=== PATIENT | female | born 1945 | race Two or more races ===

== ENCOUNTER 2018-05-15 05:19 | Day surgery (SDC) | payer OTHER ==
[2018-05-12 17:13] VITALS: BMI 32.1
[2018-05-15 08:25] VITALS: TEMP 98.4
[2018-05-15] MEDS ORDERED: oxyCODONE HCL 5 MG TABLET PO PRN (09:10)
[2018-05-15] MEDS ORDERED: MIDAZOLAM HCL 2 MG/2 ML SINGLE DOSE VIAL ONE (09:40)
--- NOTE | 2018-05-15 10:01 | OP ---
Operative Note - Note: Operative Date: 05/15/18 Pre-Operative Diagnosis: Left kidney stones Operation: Left ESWL Findings: 5 mm lower pole kidney stone Post-Operative Diagnosis: Same as Pre-op Surgeon: Chris Mallory (no complications) Anesthesia: Fractional Estimated Blood Loss (mls): 0
[2018-05-15 11:20] VITALS: BP 143/57; PULSE 57
--- NOTE | 2018-05-15 22:13 | OP ---
DATE OF OPERATION: 05/15/2018 PREOPERATIVE DIAGNOSIS: Left renal stone. POSTOPERATIVE DIAGNOSIS: Left renal stone. PROCEDURE: Left extracorporeal shock wave lithotripsy. ATTENDING: Chas Sears MD ANESTHESIA: Fractional. DESCRIPTION OF OPERATION: Patient was brought in the operating room, placed in supine position on the operating room table. Ultrasonography and fluoroscopy were performed. A 5-mm left renal stone is identified in the lower pole. Anesthesia and preoperative antibiotics are then administered. Shock wave lithotripsy is then performed; 2500 impulses at 20 joules of power were administered to the stone with excellent fragmentation under real-time ultrasonography and fluoroscopy. No complications are noted. The disposition of the patient is to the recovery room. CHAS SEARS M.D. [id number]
== END 2018-05-15 11:46 | disposition home or self-care (01) ==
LOC: JASU-SURG 05:19
PROVIDERS: ATTEND Urology
PROC: 0TF4XZZ Fragmentation in Left Kidney Pelvis, External Approach (ICD-10-PCS; principal; 2018-05-15 09:30)
DX: N20.0 Calculus of kidney (principal)

== ENCOUNTER 2018-05-29 06:15 | Day surgery (SDC) | payer OTHER ==
[2018-05-26 09:26] VITALS: BMI 32.1
[2018-05-29 06:53] VITALS: TEMP 98.3
[2018-05-29] MEDS ORDERED: MIDAZOLAM HCL 2 MG/2 ML SINGLE DOSE VIAL ONE (08:07)
[2018-05-29] MEDS ORDERED: DEXAMETHASONE SOD PHOSPHATE 4 MG/1 ML VIAL ONE (08:27)
--- NOTE | 2018-05-29 09:12 | OP ---
Operative Note - Note: Operative Date: 05/29/18 Pre-Operative Diagnosis: Right kidney stone Operation: Right ESWL Findings: 10 mm lower pole Right kidney stone Post-Operative Diagnosis: Same as Pre-op Surgeon: Chris Mallory Anesthesia: Fractional Estimated Blood Loss (mls): 0 (no intraoperative complications) Operative Report Dictated: Yes
[2018-05-29 10:10] VITALS: BP 128/51; PULSE 58
--- NOTE | 2018-05-29 18:31 | OP ---
DATE OF OPERATION: 05/29/2018 PREOPERATIVE DIAGNOSIS: Right renal stone. POSTOPERATIVE DIAGNOSIS: Right renal stone. PROCEDURE: Right extracorporeal shockwave lithotripsy. ATTENDING SURGEON: Chas Sears MD ANESTHESIA: Fractional. OPERATION: Patient was brought to the operating room and placed in the supine position on the operating room table. Ultrasonography and fluoroscopy were performed. A 10-mm right lower pole stone was identified. Anesthesia and preoperative antibiotics were then administered. Shockwave lithotripsy was then started. Three-thousand impulses at 17 Joules of power were administered to the stone under real-time ultrasonography and fluoroscopy. Excellent fragmentation of the stone was noted. No complications were noted. Patient tolerated the procedure very well. DISPOSITION: Patient was to the recovery room. CHAS SEARS M.D. [id number]
== END 2018-05-29 09:40 | disposition home or self-care (01) ==
LOC: JASU-SURG 06:15
PROVIDERS: ATTEND Urology
PROC: 0TF3XZZ Fragmentation in Right Kidney Pelvis, External Approach (ICD-10-PCS; principal; 2018-05-29 08:00)
DX: N20.0 Calculus of kidney (principal)

== ENCOUNTER 2018-07-02 13:16 | Emergency (ER) | payer OTHER ==
[2018-07-02 13:22] VITALS: TEMP 99.1; BMI 32.1
--- NOTE | 2018-07-02 13:27 | PDOC ---
Attending Attestation - Resident Resident Name: Malick Coombs - HPI HPI: 07/04/18 09:18 Pt presents to the ED complaining of a three day history of mild frontal headache. She has taken no medication for the pain. Although the pain is very mild, she reported to the ED because she took her blood pressure at home today and her blood pressure was 163. This prompted her to come to the Ed for evaluation. Denies chest pain, shortness of breath, photophobia, nausea or vomiting. Symptoms are consistent with, but less severe than, her previous headaches. - Physicial Exam PE: 07/04/18 09:28 Agree with resident exam. Patient is AA Ox3 and in no acute distress. CV: RRR no m/r/g Pulm: CTA b/l abdomen soft, non tender, non distended. Neck: supple. Neuro: Patient is alert and oriented, with a normal mood and affect. Speech is fluent and clear. CN 2-12 are grossly intact. Patient is ambulatory in the ED with a normal gait. - Medical Decision Making 07/04/18 09:30 Pt presents to the ED with mild, gradual onset headache that is consistent with tension headache. REsolved after tylenol. No concern for subarachnoid. recently evaluated for headache with negative CT head, so no concern about tumor. Will discharge home with referral to PMD.
[2018-07-02] MEDS ORDERED: ACETAMINOPHEN 500 MG TABLET (FP) PO ONE (13:39)
[2018-07-02] MEDS ORDERED: METOCLOPRAMIDE HCL 10 MG TABLET (FP) PO ONE ×2 (13:39→13:46)
[2018-07-02] MEDS ORDERED: ACETAMINOPHEN 325 MG TABLET (FP) ONE (13:46)
--- NOTE | 2018-07-02 13:52 | PDOC ---
History of Present Illness - General Chief Complaint: Blood Pressure Problem Stated Complaint: BLOOD PRESSURE PROBLEM Time Seen by Provider: 07/02/18 13:26 History Source: Patient - History of Present Illness Initial Comments: 07/02/18 13:42 Patient is a 72F with history of HTN and hypothyroidism here today complaining of a headache that started 3 days ago. She states the headache is around her entire forehead radiating to the back of her neck. Onset was insidious with gradual worsening until today. Patient hasn't taken any medications for her headache. Patient endorses associated nausea, denies vomiting. Denies any focal weakness or changes to her speech. Denies neck stiffness, fevers, chills, sick contacts. Denies chest pain, abdominal pain and shortness of breath. Patient attributes her headache to her blood pressure, which was measured at 163 at home. Denies light sensitivity, sound sensitivity. Patient had a visit for a headache [address] was done at that time and was normal. Past History - Past Medical History Allergies/Adverse Reactions: Allergies Allergy/AdvReac Type Severity Reaction Status Date / Time No Known Allergies Allergy Verified 07/02/18 13:22 Home Medications: Ambulatory Orders Aspirin [Aspirin EC] 81 mg PO DAILY 12/19/17 Oxybutynin Chloride 5 mg PO DAILY 12/19/17 Amlodipine/Atorvastatin [Amlodipine-Atorvast 5-40 mg] 1 tab PO DAILY 05/15/18 Alendronate Sodium/Vitamin D3 [Fosamax Plus D 70 mg-5,600 Iu vIT d] 1 each PO Q7D 05/26/18 Cevimeline HCl 30 mg PO BID 05/26/18 Cyclosporine [Restasis] 1 each OU BID 05/26/18 Etanercept [Enbrel] 50 mg SQ WEEKLY 05/26/18 Leflunomide [Arava] 20 mg PO DAILY 05/26/18 Levothyroxine [Synthroid -] 50 mcg PO DAILY 05/26/18 Anemia: No Asthma: No Cancer: No Cardiac Disorders: No CVA: No COPD: No CHF: No Dementia: No Diabetes: No GI Disorders: No Disorders: No HTN: Yes Hypercholesterolemia: No Liver Disease: No Seizures: No Thyroid Disease: Yes - Surgical History Abdominal Surgery: No Appendectomy: No Cardiac Surgery: No Cholecystectomy: No Lung Surgery: No Neurologic Surgery: No Orthopedic Surgery: Yes (l knee replacement, r knee arthroscopy) - Suicide/Smoking/Psychosocial Hx Smoking History: Never smoked Have you smoked in the past 12 months: No Hx Alcohol Use: No Drug/Substance Use Hx: No Substance Use Type: None Review of Systems - Review of Systems Comments:: 07/02/18 13:54 GENERAL/CONSTITUTIONAL: No fever or chills. No weakness. HEAD, EYES, EARS, NOSE AND THROAT: No change in vision. No sore throat. CARDIOVASCULAR: No chest pain or shortness of breath RESPIRATORY: No cough, wheezing, or hemoptysis. GASTROINTESTINAL: No nausea, vomiting, diarrhea or constipation. GENITOURINARY: No dysuria, frequency, or change in urination. MUSCULOSKELETAL: No joint or muscle swelling or pain. No neck or back pain. SKIN: No rash NEUROLOGIC: + headache. No vertigo, loss of consciousness, or change in strength /sensation. ENDOCRINE: No increased thirst. No abnormal weight change HEMATOLOGIC/LYMPHATIC: No anemia, easy bleeding, or history of blood clots. ALLERGIC/IMMUNOLOGIC: No hives or skin allergy. *Physical Exam - Vital Signs Last Vital Signs Temp Pulse Resp BP Pulse Ox 99.1 F 62 18 150/69 99 07/02/18 13:19 07/02/18 13:19 07/02/18 13:19 07/02/18 13:19 07/02/18 13:19 - Physical Exam Comments: 07/02/18 13:57 GENERAL: Awake, alert, and fully oriented, in no acute distress HEAD: No signs of trauma, normocephalic, atraumatic EYES: PERRLA, EOMI, sclera anicteric, conjunctiva clear ENT: Auricles normal inspection, hearing grossly normal, nares patent, oropharynx clear without exudates. Moist mucosa NECK: Normal ROM, supple, no lymphadenopathy, JVD, or masses, no midline tenderness LUNGS: No distress, speaks full sentences, clear to auscultation bilaterally HEART: Regular rate and rhythm, normal S1 and S2, no murmurs, rubs or gallops, peripheral pulses normal and equal bilaterally. ABDOMEN: Soft, nontender, normoactive bowel sounds. No guarding, no rebound. No masses EXTREMITIES: Normal inspection, Normal range of motion, no edema. No clubbing or cyanosis. NEUROLOGICAL: Cranial nerves II through XII grossly intact. Normal speech, no focal sensorimotor deficits SKIN: Warm, Dry, normal turgor, no rashes or lesions noted. Medical Decision Making - Medical Decision Making 07/02/18 13:57 Patient is 72F with no significant medical history here today complaining of headache and nausea. Vital signs stable, BP 150 systolic. PE normal. No red flags in history. Given reglan and tylenol PO for likely tension headache. Do not suspect mass, subdural hematoma, parenchymal brain bleed or other serious etiology. Patient improved, wants to go home. Discharged home with instructions to f/u with PCP. Given return precautions. *DC/Admit/Observation/Transfer Diagnosis at time of Disposition: Headache - Discharge Dispostion Disposition: HOME Condition at time of disposition: Good Decision to Admit order: No - Referrals Referrals: Linden Callaway MD [Primary Care Provider] - - Patient Instructions Printed Discharge Instructions: DI for Headache, How to Monitor Your Blood Pressure at Home Additional Instructions: Por favor, regrese si tiene algn sntoma nuevo, que empeora o que est relacionado con los sntomas. Por favor stevie un seguimiento con kovacs mdico de atencin primaria esta semana. Print Language: INDONESIAN - Post Discharge Activity
[2018-07-02 14:27] VITALS: BP 133/62; PULSE 68
== END 2018-07-02 14:29 | disposition home or self-care (01) ==
LOC: JER 13:16
DX: R51 Headache (principal); I10 Essential (primary) hypertension; E03.9 Hypothyroidism, unspecified; Z79.82 Long term (current) use of aspirin
CPT/HCPCS: 99282-25

== ENCOUNTER 2018-07-12 08:53 | Day surgery (SDC) | payer OTHER ==
[2018-07-11 09:48] VITALS: BMI 31.1
[~2018-07-12 08:53] MED LIST: ACETAMINOPHEN 325 MG TABLET (FP) PO PRN; KETOROLAC TROMETHAMINE 0.5% EYE DROP 1 DROP DROPS OD SCH
[2018-07-12] MEDS ORDERED: OFLOXACIN 0.3% OPHTHALMIC SOLUTION 5 ML BOTTLE ONE ×2 (09:21→09:25)
[2018-07-12] MEDS ORDERED: TROPICAMIDE 1% OPHTH SOLN 15 ML BOTTLE ONE ×2 (09:21→09:25)
[2018-07-12] MEDS ORDERED: CYCLOPENTOLATE HCL 1% OPHTH SOLN 2 ML BOTTLE ONE ×2 (09:21→09:25)
[2018-07-12] MEDS ORDERED: PHENYLEPHRINE 2.5% OPHTH SOLN 15 ML BOTTLE ONE ×2 (09:21→09:25)
[2018-07-12] MEDS ORDERED: DICLOFENAC SODIUM 0.1% OPHTHALMIC 2.5ML BOTTLE ONE (09:25)
[2018-07-12] MEDS: OFLOXACIN 0.3% OPHTHALMIC SOLUTION 5 ML BOTTLE OD SCH ×3 (09:30→09:40)
[2018-07-12] MEDS: PHENYLEPHRINE 2.5% OPHTH SOLN 15 ML BOTTLE OD SCH ×3 (09:30→09:40)
[2018-07-12] MEDS: CYCLOPENTOLATE HCL 1% OPHTH SOLN 2 ML BOTTLE OD SCH ×3 (09:30→09:40)
[2018-07-12] MEDS: TROPICAMIDE 1% OPHTH SOLN 15 ML BOTTLE OD SCH ×3 (09:30→09:40)
[2018-07-12] MEDS ORDERED: MIDAZOLAM HCL 2 MG/2 ML SINGLE DOSE VIAL ONE (10:20)
[2018-07-12] MEDS ORDERED: TETRACAINE 0.5% OPHTH SOLN 2 ML BOTTLE OD ONE (10:31)
[2018-07-12] MEDS ORDERED: POVIDONE-IODINE 5% OPHTHALMIC PREP 30 ML SOLUTION OD ONE (10:33)
[2018-07-12] MEDS ORDERED: CHONDROITIN SU A/HYALUR SOD 1 KIT IO ONE (10:44)
[2018-07-12] MEDS ORDERED: BSS (NA/CA/MG/K) BALANCED SALT SOLUTION OPHTH SOLN 15 ML BOTTLE OD ONE (10:44)
[2018-07-12] MEDS ORDERED: LIDOCAINE HCL 1% PRESERVATIVE FREE - 30ML VIAL IO ONE (10:44)
[2018-07-12] MEDS ORDERED: TRYPAN BLUE 0.5 ML DISP.SYRIN IO ONE (10:44)
[2018-07-12] MEDS ORDERED: EPINEPHrine/PF 1 MG/1 ML (1:1,000) AMPULE SQ ONE (10:52)
[2018-07-12] MEDS ORDERED: TRYPAN BLUE 0.5 ML DISP.SYRIN ONE (11:45)
[2018-07-12 15:00] VITALS: BP 146/57; PULSE 64
--- NOTE | 2018-07-13 00:33 | OP ---
DATE OF OPERATION: DATE OF DICTATION: 07/12/2018 PREOPERATIVE DIAGNOSIS: Cataract, right eye. POSTOPERATIVE DIAGNOSIS: Cataract, right eye. PROCEDURE: Phacoemulsification of right cataract with capsule staining with trypan blue and posterior chamber intraocular lens implantation. LENS USED: [id number], 23.0 diopter power, serial number [id number]. ANESTHESIA: Topical with MAC COMPLICATIONS: None. DESCRIPTION OF PROCEDURE: The patient was brought to the operating room and correctly identified along with the operative site as well as the correct intraocular lens roa. She was then prepped and draped in the usual sterile fashion including 5% Betadine solution in the conjunctival sac and an eyelid drape. An eyelid speculum was then placed into the right eye. The eye was inspected, and a dense, central nuclear sclerosis cataract was noted; however, there appeared to be some elevation within the central anterior capsule with perhaps subcapsular fluid being present. The red reflex was prominent; however, the cornea also had a mild opacity making the visualization of the anterior capsule slightly diminished. Paracentesis port was created, and 0.5 mL of 1% lidocaine preservative free Lidocaine was then injected intracamerally. Using an air bubble, the capsule was then stained with Trypan blue. Viscoelastic was then injected to inflate the anterior chamber, and a temporal clear corneal wound was created. A continuous circular capsulorrhexis was successfully performed. The nucleus was then hydro-dissected with BSS and removed with phacoemulsification via the [id number] approach. The remaining cortical material was irrigated and aspirated from the eye. Viscoelastic was injected to inflate the capsular bag and the lens was then injected into the capsular bag. Viscoelastic was irrigated and aspirated from the eye, and all wounds were tested after filling the anterior chamber with BSS by external pressure with weck spear sponges. The temporal clear corneal wound was noted to have some mild leakage. Stromal hydration was performed, but this did not solve the leakage. A single 10-0 nylon suture was then placed in the temporal clear corneal wound, and again the wound tested. At this point, it was found to be watertight. No further sutures were placed. The intraocular lens was noted to be well centered and covered by the anterior capsular border. Topical Vancomycin was given and the eye patched and shielded. The patient was then discharged from the operating room in stable condition. JARRET RUBY M.D. [id number] LEANNE
== END 2018-07-12 12:25 | disposition home or self-care (01) ==
LOC: JASU-SURG 08:53
PROVIDERS: ATTEND Ophthalmology
PROC: 08RJ3JZ Replacement of Right Lens with Synthetic Substitute, Percutaneous Approach (ICD-10-PCS; principal; 2018-07-12 10:00)
DX: H26.9 Unspecified cataract (principal); H17.89 Other corneal scars and opacities

== ENCOUNTER 2018-07-26 08:47 | Day surgery (SDC) | payer OTHER ==
[2018-07-25 09:44] VITALS: BMI 31.1
[~2018-07-26 08:47] MED LIST changes: -KETOROLAC TROMETHAMINE 0.5% EYE DROP 1 DROP DROPS OD SCH
[2018-07-26] MEDS ORDERED: OFLOXACIN 0.3% OPHTHALMIC SOLUTION 5 ML BOTTLE ONE (09:12)
[2018-07-26] MEDS ORDERED: PHENYLEPHRINE 2.5% OPHTH SOLN 15 ML BOTTLE ONE (09:12)
[2018-07-26] MEDS ORDERED: CYCLOPENTOLATE HCL 1% OPHTH SOLN 2 ML BOTTLE ONE (09:12)
[2018-07-26] MEDS ORDERED: TROPICAMIDE 1% OPHTH SOLN 15 ML BOTTLE ONE (09:13)
[2018-07-26] MEDS ORDERED: KETOROLAC TROMETHAMINE 0.5% EYE DROP 1 DROP DROPS ONE (09:13)
[2018-07-26 09:15] VITALS: TEMP 98.9
[2018-07-26] MEDS: OFLOXACIN 0.3% OPHTHALMIC SOLUTION 5 ML BOTTLE OP SCH ×3 (09:20→09:44)
[2018-07-26] MEDS: TROPICAMIDE 1% OPHTH SOLN 15 ML BOTTLE OP SCH ×3 (09:20→09:44)
[2018-07-26] MEDS: CYCLOPENTOLATE HCL 1% OPHTH SOLN 2 ML BOTTLE OP SCH ×3 (09:20→09:44)
[2018-07-26] MEDS: PHENYLEPHRINE 2.5% OPHTH SOLN 15 ML BOTTLE OP SCH ×3 (09:20→09:44)
[2018-07-26] MEDS: KETOROLAC TROMETHAMINE 0.5% EYE DROP 1 DROP DROPS OP SCH ×3 (09:20→09:44)
[2018-07-26] MEDS ORDERED: MIDAZOLAM HCL 2 MG/2 ML SINGLE DOSE VIAL ONE (09:52)
[2018-07-26] MEDS ORDERED: TETRACAINE 0.5% OPHTH SOLN 2 ML BOTTLE OS ONE (10:15)
[2018-07-26] MEDS ORDERED: POVIDONE-IODINE 5% OPHTHALMIC PREP 30 ML SOLUTION OS ONE (10:17)
[2018-07-26] MEDS ORDERED: LIDOCAINE HCL 1% PRESERVATIVE FREE - 30ML VIAL IO ONE (10:25)
[2018-07-26] MEDS ORDERED: BSS (NA/CA/MG/K) BALANCED SALT SOLUTION OPHTH SOLN 15 ML BOTTLE OS ONE (10:25)
[2018-07-26] MEDS ORDERED: CHONDROITIN SU A/HYALUR SOD 1 KIT IO ONE (10:25)
[2018-07-26] MEDS ORDERED: EPINEPHrine/PF 1 MG/1 ML (1:1,000) AMPULE SQ ONE (10:32)
[2018-07-26] MEDS ORDERED: ONDANSETRON 4 MG/2 ML VIAL IVPUSH PRN (10:51)
[2018-07-26] MEDS ORDERED: LACTATED RINGERS SOLUTION 1,000 ML IV SCH (11:00)
[2018-07-26 11:07] VITALS: PULSE 72
--- NOTE | 2018-07-26 12:20 | SPEC ---
DATE OF OPERATION: 07/26/2018 PREOPERATIVE DIAGNOSIS: Cataract, left eye. POSTOPERATIVE DIAGNOSIS: Cataract, left eye. PROCEDURE: Phacoemulsification of left cataract with posterior chamber intraocular lens implantation. Lens used [id number], 23.0 diopter power, serial No. [id number]. SURGEON: Jarret Ruby M.D. ANESTHESIA: Topical MAC. COMPLICATIONS: None. DESCRIPTION OF PROCEDURE: The patient was brought to the operating room and correctly identified along with the operative site and the correct intraocular lens roa. The patient was then prepped and draped in the usual sterile fashion including 5% Betadine solution in the conjunctival sac and an eyelid drape. An eyelid speculum was then placed in the eye. A paracentesis port was created and approximately 0.5 mL of preservative free Lidocaine was then injected into the eye. Viscoelastic was then injected to inflate the anterior chamber. A temporal clear corneal wound was created. A continuous circular capsulorrhexis was performed. The nucleus was then hydrodissected with BSS and removed with phacoemulsification. The remaining cortical material was irrigated and aspirated. Viscoelastic was injected to inflate the capsular bag and the intraocular lens was then implanted into the capsular bag. The remaining Viscoelastic was irrigated and aspirated from the eye. The IOL was noted to be well centered and completely covered by the anterior capsulorrhexis. Topical vancomycin was placed and the eye patched and shielded. All wounds were tested and found to be watertight. No suture was placed. The eye was then shielded. The patient was then discharged from the operating room in stable condition. JARRET RUBY M.D. [id number]
[2018-07-26 13:01] VITALS: BP 122/55
== END 2018-07-26 12:00 | disposition home or self-care (01) ==
LOC: JASU-SURG 08:47
PROVIDERS: ATTEND Ophthalmology
PROC: 08RK3JZ Replacement of Left Lens with Synthetic Substitute, Percutaneous Approach (ICD-10-PCS; principal; 2018-07-26 10:00)
DX: H26.9 Unspecified cataract (principal)

== ENCOUNTER 2022-11-24 13:05 | Inpatient (IN) | payer OTHER ==
[2022-11-24] MEDS ORDERED: ACETAMINOPHEN 1000 MG/100 ML BAG IVPB ONE (14:24)
[2022-11-24] MEDS ORDERED: SODIUM CHLORIDE 0.9% 500 ML INFUS.BAG IV ONE (14:38)
[2022-11-24] MEDS ORDERED: ACETAMINOPHEN INJECTION 100 ML IVPB ONE (14:39)
[2022-11-24 15:47] LABS: EPI CELLS 32 /uL (0-25.1); HYALINE CASTS 1 /uL (0-3.1); URINE APPEARANCE CLOUDY; URINE BACTERIA 31 /uL (0-1359); URINE BILIRUBIN NEGATIVE (NEGATIVE); URINE COLOR YELLOW; URINE GLUCOSE (UA) NEGATIVE (NEGATIVE); URINE KETONE NEGATIVE (NEGATIVE); URINE LEUK ESTERASE NEGATIVE (NEGATIVE); URINE NITRITE NEGATIVE (NEGATIVE); URINE PROTEIN 1+ (NEGATIVE); URINE RBC 13 /uL (0-23.9); URINE WBC 6 /uL (0-25.8)
[2022-11-24 15:50] LABS: BASO % 0.5 % (0-2.0); EOS % 0.8 % (0-4.5); HEMATOCRIT 36.2 % (32.4-45.2); HEMOGLOBIN 11.4 GM/dL (10.7-15.3); LYMPH % 13.1 % (8-40); MCH 30.7 pg (25.7-33.7); MCHC 31.6 g/dl (32.0-36.0); MEAN CELL VOLUME 97.1 fl (80-96); MEAN PLT VOLUME 10.4 fl (7.5-11.1); MONO % 10.8 % (3.8-10.2); NEUT % 74.8 % (42.8-82.8); PLATELET COUNT 179 10^3/uL (134-434); RBC 3.73 M/mm3 (3.60-5.2); RDW 13.6 % (11.6-15.6)
[2022-11-24 15:57] LABS: INR 1.13 (0.83-1.09)
[2022-11-24 16:00] LABS: ACTIVATED PTT 28.7 SECONDS (25.2-36.5)
[2022-11-24 16:08] LABS: ALBUMIN 3.5 g/dl (3.4-5.0); BLOOD UREA NITROGEN 20.7 mg/dL (7-18)
[2022-11-24 16:12] LABS: CREATININE 1.4 mg/dL (0.55-1.3)
[2022-11-24 16:13] LABS: BILIRUBIN,TOTAL 0.8 mg/dL (0.2-1); TOT PROT 7.9 g/dl (6.4-8.2)
[2022-11-24] MEDS ORDERED: PIPERACILLIN/TAZOB 3.375 GM 3.375 GM in DEXTROSE 5%-WATER - 50 ML IVPB ONE (18:53)
[2022-11-24] MEDS ORDERED: PIPERACILLIN/TAZOB 3.375 GM 3.375 GM/50 ML BAG IVPB ONE (19:30)
[2022-11-24 19:45] LABS: CALCIUM 8.3 mg/dL (8.5-10.1)
[2022-11-24 19:47] LABS: BLOOD UREA NITROGEN 19.4 mg/dL (7-18)
[2022-11-24 19:50] LABS: CREATININE 1.3 mg/dL (0.55-1.3)
[2022-11-24] MEDS ORDERED: LACTATED RINGERS SOLUTION 1,000 ML/1,000 ML INFUS.BAG IV SCH (23:15)
[2022-11-25 00:17] VITALS: BMI 33.8
[2022-11-25] MEDS ORDERED: PIPERACILLIN/TAZOB 2.25 GM 2.25 GM in DEXTROSE 5%-WATER - 50 ML IVPB SCH (03:40)
[2022-11-25] MEDS: PIPERACILLIN/TAZOB 2.25 GM 2.25 GM in DEXTROSE 5%-WATER - 50 ML IVPB SCH ×4 (03:47→21:58)
[2022-11-25] MEDS ORDERED: PATIENT'S OWN MEDICATION (NON-FORMULARY) (Etanercept [Enbrel] 50 MG/ML Syringe) SQ SCH (05:45)
[2022-11-25] MEDS: ACETAMINOPHEN 1000 MG/100 ML BAG IVPB PRN ×2 (06:51→11:53)
[2022-11-25 07:47] LABS: BASO % 0.5 % (0-2.0); EOS % 0.4 % (0-4.5); HEMATOCRIT 32.6 % (32.4-45.2); HEMOGLOBIN 10.6 GM/dL (10.7-15.3); LYMPH % 15.7 % (8-40); MCH 31.4 pg (25.7-33.7); MCHC 32.5 g/dl (32.0-36.0); MEAN CELL VOLUME 96.7 fl (80-96); MEAN PLT VOLUME 10.3 fl (7.5-11.1); MONO % 11.1 % (3.8-10.2); NEUT % 72.3 % (42.8-82.8); PLATELET COUNT 153 10^3/uL (134-434); RBC 3.37 M/mm3 (3.60-5.2); RDW 13.1 % (11.6-15.6); WHITE BLOOD COUNT 7.9 K/mm3 (4.0-10.0)
[2022-11-25 08:21] LABS: BLOOD UREA NITROGEN 17.2 mg/dL (7-18); MAGNESIUM 1.6 mg/dL (1.8-2.4)
[2022-11-25 08:22] LABS: CALCIUM 8.4 mg/dL (8.5-10.1)
[2022-11-25 08:26] LABS: BILIRUBIN,TOTAL 0.8 mg/dL (0.2-1); TOT PROT 6.3 g/dl (6.4-8.2)
[2022-11-25 08:27] LABS: CREATININE 1.4 mg/dL (0.55-1.3)
[2022-11-25 08:29] LABS: PHOSPHOROUS 2.8 mg/dL (2.5-4.9)
[2022-11-25] MEDS: LISINOPRIL 20 MG TABLET PO SCH (11:18)
[2022-11-25] MEDS: PANTOPRAZOLE 40 MG TABLET PO SCH (11:18)
[2022-11-25] MEDS: amLODIPine BESYLATE 10 MG TABLET (FP) PO SCH (11:18)
[2022-11-25] MEDS: FOLIC ACID 1 MG TABLET (FP) PO SCH (11:18)
[2022-11-25] MEDS ORDERED: MAGNESIUM SULF 50% (8.12 MEQ/2 ML-1 GM VIAL) IVPB ONE (11:30)
[2022-11-25] MEDS ORDERED: DEXTROSE 5%-NORMAL SALINE 1,000 ML IV SCH (13:00)
[2022-11-25] MEDS ORDERED: ATORVASTATIN CA 20 MG TABLET (FP) PO SCH (22:00)
[2022-11-26 09:42] LABS: BASO % 0.4 % (0-2.0); EOS % 1.4 % (0-4.5); LYMPH % 19.1 % (8-40); MCH 31.4 pg (25.7-33.7); MCHC 32.2 g/dl (32.0-36.0); MEAN CELL VOLUME 97.5 fl (80-96); MEAN PLT VOLUME 10.2 fl (7.5-11.1); NEUT % 69.1 % (42.8-82.8); PLATELET COUNT 154 10^3/uL (134-434); RBC 3.18 M/mm3 (3.60-5.2); RDW 13.2 % (11.6-15.6); WHITE BLOOD COUNT 7.1 K/mm3 (4.0-10.0)
[2022-11-26] MEDS: LISINOPRIL 20 MG TABLET PO SCH (09:52)
[2022-11-26] MEDS: PANTOPRAZOLE 40 MG TABLET PO SCH (09:52)
[2022-11-26] MEDS: amLODIPine BESYLATE 10 MG TABLET (FP) PO SCH (09:53)
[2022-11-26] MEDS: FOLIC ACID 1 MG TABLET (FP) PO SCH (09:53)
[2022-11-26] MEDS ORDERED: LEVOTHYROXINE NA 75 MCG TABLET (FP) PO SCH (10:00)
[2022-11-26 10:30] LABS: CALCIUM 8.1 mg/dL (8.5-10.1)
[2022-11-26 10:31] LABS: BLOOD UREA NITROGEN 15.3 mg/dL (7-18)
[2022-11-26 10:34] LABS: CREATININE 1.3 mg/dL (0.55-1.3)
[2022-11-26] MEDS ORDERED: PROPOFOL 20 ML ONE (10:40)
[2022-11-26] MEDS ORDERED: ROCURONIUM BROMIDE 50 MG/5 ML SYRINGE ONE (10:40)
[2022-11-26] MEDS ORDERED: MIDAZOLAM HCL 2 MG/2 ML SINGLE DOSE VIAL ONE (10:41)
[2022-11-26] MEDS ORDERED: BUPIVACAINE HCL/PF 0.5% (5MG/ML) 10 ML VIAL ONE (11:02)
[2022-11-26] MEDS ORDERED: oxyCODONE HCL 5 MG TABLET PO PRN (11:10)
[2022-11-26] MEDS ORDERED: ONDANSETRON 4 MG/2 ML VIAL IVPUSH PRN ×2 (11:10→14:25)
[2022-11-26] MEDS ORDERED: LACTATED RINGERS SOLUTION 1,000 ML IV SCH (11:15)
[2022-11-26] MEDS ORDERED: ceFAZolin SODIUM 1 GM VIAL IVPB ONE (11:40)
[2022-11-26] MEDS ORDERED: BUPIVACAINE HCL/PF 0.5% (5 MG/ML) 30 ML VIAL IJ ONE ×2 (11:50)
[2022-11-26] MEDS ORDERED: NEOSTIGMINE METHYLSULFATE 0.5 MG/1 ML - 10 ML MDV ONE (12:57)
[2022-11-26] MEDS ORDERED: ACETAMINOPHEN 325 MG TABLET (FP) PO PRN (14:25)
[2022-11-26] MEDS ORDERED: ONDANSETRON 4 MG/2 ML VIAL ONE (15:31)
[2022-11-26] MEDS ORDERED: ONDANSETRON 4 MG/2 ML VIAL IVPUSH ONE (15:32)
[2022-11-26] MEDS: LACTATED RINGERS SOLUTION 1,000 ML IV SCH ×2 (16:12→21:46)
[2022-11-26] MEDS: PIPERACILLIN/TAZOB 3.375 GM 3.375 GM in DEXTROSE 5%-WATER - 50 ML IVPB SCH ×2 (16:24→21:45)
[2022-11-26] MEDS: PATIENT'S OWN MEDICATION (NON-FORMULARY) (Leflunomide [Arava] 20 MG Tablet) PO SCH ×2 (16:34→16:35)
[2022-11-26] MEDS: PATIENT'S OWN MEDICATION (NON-FORMULARY) (Vibegron [Gemtesa] 75 MG Tablet) PO SCH ×2 (16:34→16:36)
[2022-11-26] MEDS ORDERED: PIPERACILLIN/TAZOB 2.25 GM 2.25 GM in DEXTROSE 5%-WATER - 50 ML IVPB SCH (19:00)
[2022-11-26] MEDS: ATORVASTATIN CA 20 MG TABLET (FP) PO SCH (21:44)
[2022-11-26] MEDS: oxyCODONE HCL 5 MG TABLET PO PRN (21:44)
[2022-11-27] MEDS: PIPERACILLIN/TAZOB 3.375 GM 3.375 GM in DEXTROSE 5%-WATER - 50 ML IVPB SCH ×4 (02:19→22:28)
[2022-11-27] MEDS: oxyCODONE HCL 5 MG TABLET PO PRN (04:22)
[2022-11-27] MEDS: LEVOTHYROXINE NA 75 MCG TABLET (FP) PO SCH (06:28)
[2022-11-27 09:16] LABS: BASO % 0.1 % (0-2.0); HEMATOCRIT 28.9 % (32.4-45.2); HEMOGLOBIN 9.3 GM/dL (10.7-15.3); LYMPH % 11.7 % (8-40); MCH 31.4 pg (25.7-33.7); MCHC 32.1 g/dl (32.0-36.0); MEAN CELL VOLUME 97.8 fl (80-96); MEAN PLT VOLUME 9.8 fl (7.5-11.1); MONO % 2.7 % (3.8-10.2); NEUT % 85.5 % (42.8-82.8); PLATELET COUNT 150 10^3/uL (134-434); RBC 2.96 M/mm3 (3.60-5.2); WHITE BLOOD COUNT 6.6 K/mm3 (4.0-10.0)
[2022-11-27 09:33] LABS: CALCIUM 7.7 mg/dL (8.5-10.1)
[2022-11-27 09:35] LABS: BLOOD UREA NITROGEN 19.2 mg/dL (7-18); MAGNESIUM 1.9 mg/dL (1.8-2.4)
[2022-11-27 09:37] LABS: CREATININE 1.5 mg/dL (0.55-1.3)
[2022-11-27] MEDS: PANTOPRAZOLE 40 MG TABLET PO SCH (11:00)
[2022-11-27] MEDS: LISINOPRIL 20 MG TABLET PO SCH (11:00)
[2022-11-27] MEDS: FOLIC ACID 1 MG TABLET (FP) PO SCH (11:00)
[2022-11-27] MEDS: amLODIPine BESYLATE 10 MG TABLET (FP) PO SCH (11:00)
[2022-11-27] MEDS: LACTATED RINGERS SOLUTION 1,000 ML IV SCH ×3 (11:01→22:28)
[2022-11-27] MEDS: LEFLUNOMIDE 10 MG TABLET PO SCH (13:32)
[2022-11-27] MEDS: ATORVASTATIN CA 20 MG TABLET (FP) PO SCH (22:28)
[2022-11-28] MEDS: PIPERACILLIN/TAZOB 3.375 GM 3.375 GM in DEXTROSE 5%-WATER - 50 ML IVPB SCH ×4 (02:01→22:33)
[2022-11-28] MEDS: LEVOTHYROXINE NA 75 MCG TABLET (FP) PO SCH (06:33)
[2022-11-28] MEDS: amLODIPine BESYLATE 10 MG TABLET (FP) PO SCH (09:06)
[2022-11-28] MEDS: FOLIC ACID 1 MG TABLET (FP) PO SCH (09:06)
[2022-11-28] MEDS: LEFLUNOMIDE 10 MG TABLET PO SCH (09:06)
[2022-11-28] MEDS: PANTOPRAZOLE 40 MG TABLET PO SCH (09:06)
[2022-11-28] MEDS: LISINOPRIL 20 MG TABLET PO SCH (09:06)
[2022-11-28 09:51] LABS: BASO % 0.3 % (0-2.0); EOS % 0.1 % (0-4.5); HEMATOCRIT 28.7 % (32.4-45.2); HEMOGLOBIN 9.2 GM/dL (10.7-15.3); LYMPH % 18.8 % (8-40); MCH 31.4 pg (25.7-33.7); MCHC 32.1 g/dl (32.0-36.0); MEAN PLT VOLUME 9.7 fl (7.5-11.1); MONO % 5.8 % (3.8-10.2); PLATELET COUNT 188 10^3/uL (134-434); RBC 2.93 M/mm3 (3.60-5.2); WHITE BLOOD COUNT 7.4 K/mm3 (4.0-10.0)
[2022-11-28 10:30] LABS: ALBUMIN 2.4 g/dl (3.4-5.0); CALCIUM 7.9 mg/dL (8.5-10.1)
[2022-11-28 10:32] LABS: BLOOD UREA NITROGEN 24.7 mg/dL (7-18); CREATININE 1.6 mg/dL (0.55-1.3); MAGNESIUM 1.9 mg/dL (1.8-2.4)
[2022-11-28 10:34] LABS: BILIRUBIN,TOTAL 0.3 mg/dL (0.2-1)
[2022-11-28 10:35] LABS: TOT PROT 5.7 g/dl (6.4-8.2)
[2022-11-28] MEDS ORDERED: LACTATED RINGERS SOLUTION 1,000 ML IV SCH (10:51)
[2022-11-28] MEDS ORDERED: NAPH,MB-DB/K PH,MBDB POWDER PACKET PO ONE (11:30)
[2022-11-28] MEDS: TOLTERODINE TARTRATE LA 2 MG CAP.SR.24H PO SCH (12:14)
[2022-11-28] MEDS: PATIENT'S OWN MEDICATION (NON-FORMULARY) (Vibegron [Gemtesa] 75 MG) PO SCH (16:34)
[2022-11-28] MEDS: LACTATED RINGERS SOLUTION 1,000 ML/1,000 ML INFUS.BAG IV SCH (16:44)
[2022-11-28] MEDS: ATORVASTATIN CA 20 MG TABLET (FP) PO SCH (22:33)
[2022-11-29] MEDS: PIPERACILLIN/TAZOB 3.375 GM 3.375 GM in DEXTROSE 5%-WATER - 50 ML IVPB SCH ×3 (03:37→14:09)
[2022-11-29] MEDS: LACTATED RINGERS SOLUTION 1,000 ML/1,000 ML INFUS.BAG IV SCH ×2 (04:09→14:13)
[2022-11-29] MEDS: LEVOTHYROXINE NA 75 MCG TABLET (FP) PO SCH (06:28)
[2022-11-29] MEDS: PANTOPRAZOLE 40 MG TABLET PO SCH (10:13)
[2022-11-29] MEDS: TOLTERODINE TARTRATE LA 2 MG CAP.SR.24H PO SCH (10:13)
[2022-11-29] MEDS: FOLIC ACID 1 MG TABLET (FP) PO SCH (10:13)
[2022-11-29] MEDS: amLODIPine BESYLATE 10 MG TABLET (FP) PO SCH (10:13)
[2022-11-29] MEDS: LISINOPRIL 20 MG TABLET PO SCH (10:13)
[2022-11-29] MEDS: LEFLUNOMIDE 10 MG TABLET PO SCH (10:13)
[2022-11-29 10:24] LABS: BASO % 0.5 % (0-2.0); EOS % 2.4 % (0-4.5); HEMATOCRIT 33.2 % (32.4-45.2); HEMOGLOBIN 10.6 GM/dL (10.7-15.3); LYMPH % 33.3 % (8-40); MCH 31.2 pg (25.7-33.7); MCHC 31.9 g/dl (32.0-36.0); MEAN PLT VOLUME 9.2 fl (7.5-11.1); NEUT % 55.8 % (42.8-82.8); PLATELET COUNT 231 10^3/uL (134-434); RBC 3.39 M/mm3 (3.60-5.2); RDW 13.5 % (11.6-15.6); WHITE BLOOD COUNT 6.5 K/mm3 (4.0-10.0)
[2022-11-29 10:51] LABS: CREATININE 1.5 mg/dL (0.55-1.3)
[2022-11-29 10:52] LABS: BILIRUBIN,TOTAL 0.4 mg/dL (0.2-1); TOT PROT 6.5 g/dl (6.4-8.2)
[2022-11-29 10:53] LABS: ALBUMIN 2.8 g/dl (3.4-5.0); CALCIUM 8.7 mg/dL (8.5-10.1); MAGNESIUM 1.6 mg/dL (1.8-2.4)
[2022-11-29 10:54] LABS: BLOOD UREA NITROGEN 17.6 mg/dL (7-18)
[2022-11-29 10:57] LABS: PHOSPHOROUS 2.6 mg/dL (2.5-4.9)
[2022-11-29 11:32] VITALS: TEMP 98.3
[2022-11-29 15:57] VITALS: BP 138/62; PULSE 91; RESP 17
[2022-11-29] MEDS ORDERED: ASPIRIN COATED 81 MG TABLET.EC PO SCH (16:15)
== END 2022-11-29 16:45 | disposition home or self-care (01) | DRG 418 ==
LOC: JER 13:05 → JERBED 18:54 → J7W 21:24
PROVIDERS: ADMIT Internal Medicine; ATTEND Internal Medicine
PROC: 0FT44ZZ Resection of Gallbladder, Percutaneous Endoscopic Approach (ICD-10-PCS; principal; 2022-11-26 10:45)
DX: K81.0 Acute cholecystitis (principal); K82.1 Hydrops of gallbladder; K86.2 Cyst of pancreas; E03.9 Hypothyroidism, unspecified; M06.9 Rheumatoid arthritis, unspecified; Z96.652 Presence of left artificial knee joint; K76.0 Fatty (change of) liver, not elsewhere classified; I12.9 Hypertensive chronic kidney disease with stage 1 through stage 4 chronic kidney disease, or unspecified chronic kidney disease; N18.9 Chronic kidney disease, unspecified; N20.0 Calculus of kidney; K40.90 Unilateral inguinal hernia, without obstruction or gangrene, not specified as recurrent; K82.A1 Gangrene of gallbladder in cholecystitis
CPT/HCPCS: 0241U-QW; 36415; 74176-TC; 74182-TC; 76700-TC; 80048; 80053; 81003; 83690; 83735; 84100; 84484; 85025; 85610; 85730; 86850; 86900; 86901; 87086; 88304-TC; 93005; 93010; 94760; 94761; 97116-GP; 97162-GP; 99285-25; A9579

== ENCOUNTER 2022-12-21 04:21 | Day surgery (SDC) | payer OTHER ==
[2022-12-21] MEDS ORDERED: DEXAMETHASONE SOD PHOSPHATE 10 MG/1 ML VIAL ONE (07:28)
[2022-12-21] MEDS ORDERED: LIDOCAINE HCL/PF 1% SDV 5ML VIAL ONE (07:28)
[2022-12-21] MEDS ORDERED: DEXAMETHASONE SOD PHOSPHATE 4 MG/1 ML VIAL ONE (07:28)
[2022-12-21 09:49] VITALS: RESP 18; BMI 30.2
[2022-12-21] MEDS ORDERED: LIDOCAINE HCL 1% PRESERVATIVE FREE - 30ML VIAL IJ ONE (11:12)
[2022-12-21] MEDS ORDERED: DEXAMETHASONE SOD PHOSPHATE 10 MG/1 ML VIAL IVPUSH ONE (11:12)
[2022-12-21] MEDS ORDERED: IOHEXOL 180 MG/1 ML ML IJ ONE (11:13)
[2022-12-21 14:29] VITALS: BP 145/58; PULSE 70; TEMP 97.8
== END 2022-12-21 12:00 | disposition home or self-care (01) ==
LOC: JASU-SURG 04:21
PROVIDERS: ATTEND Pain Medicine Pain Medicine
PROC: 3E0R3BZ Introduction of Anesthetic Agent into Spinal Canal, Percutaneous Approach (ICD-10-PCS; 2022-12-21)
PROC: 3E0R33Z Introduction of Anti-inflammatory into Spinal Canal, Percutaneous Approach (ICD-10-PCS; principal; 2022-12-21 11:00)
DX: M48.061 Spinal stenosis, lumbar region without neurogenic claudication (principal); M54.16 Radiculopathy, lumbar region
CPT/HCPCS: 76000-TC-FY; J1100

== ENCOUNTER 2023-03-10 04:22 | Day surgery (SDC) | payer OTHER ==
[2023-03-09 10:46] VITALS: BMI 32.1
[2023-03-10 12:23] VITALS: TEMP 97.3
[2023-03-10 12:24] VITALS: PULSE 70
[2023-03-10 12:27] VITALS: BP 138/46; RESP 12
== END 2023-03-10 11:40 | disposition home or self-care (01) ==
LOC: JASU-ENDO 04:22
PROVIDERS: ATTEND Internal Medicine Gastroenterology
PROC: 0DBH8ZX Excision of Cecum, Via Natural or Artificial Opening Endoscopic, Diagnostic (ICD-10-PCS; 2023-03-10)
PROC: 0DB78ZX Excision of Stomach, Pylorus, Via Natural or Artificial Opening Endoscopic, Diagnostic (ICD-10-PCS; 2023-03-10)
PROC: 0DBM8ZX Excision of Descending Colon, Via Natural or Artificial Opening Endoscopic, Diagnostic (ICD-10-PCS; principal; 2023-03-10 10:30)
DX: D12.4 Benign neoplasm of descending colon (principal); D12.0 Benign neoplasm of cecum; K57.30 Diverticulosis of large intestine without perforation or abscess without bleeding; K29.50 Unspecified chronic gastritis without bleeding; K44.9 Diaphragmatic hernia without obstruction or gangrene; I10 Essential (primary) hypertension
CPT/HCPCS: 88305-TC; 88342-TC

== ENCOUNTER 2023-03-25 04:13 | Day surgery (SDC) | payer OTHER ==
[2023-03-18 14:28] VITALS: BMI 30.2
[2023-03-25] MEDS ORDERED: BUPIVACAINE HCL/PF 0.5% (5MG/ML) 10 ML VIAL ONE (07:19)
[2023-03-25] MEDS ORDERED: LIDOCAINE HCL/PF 2% SDV 5ML VIAL ONE (07:19)
[2023-03-25] MEDS ORDERED: BUPIVACAINE HCL/PF 0.75% 10 ML VIAL ONE (07:19)
[2023-03-25] MEDS ORDERED: LIDOCAINE HCL/PF 1% SDV 5ML VIAL ONE (07:19)
[2023-03-25] MEDS ORDERED: BUPIVACAINE HCL/PF 0.75% 10 ML VIAL NR ONE ×3 (08:40→10:44)
[2023-03-25] MEDS ORDERED: LIDOCAINE 1% P/F 10 MG/ML VIAL INF ONE ×2 (08:40→10:44)
[2023-03-25 08:42] VITALS: RESP 18
[2023-03-25] MEDS ORDERED: ACETAMINOPHEN 500 MG TABLET (FP) PO PRN (09:58)
[2023-03-25 11:47] VITALS: BP 107/65; PULSE 70; TEMP 98.4
== END 2023-03-25 11:25 | disposition home or self-care (01) ==
LOC: JASU-SURG 04:13
PROVIDERS: ATTEND Pain Medicine Pain Medicine
PROC: 3E0T33Z Introduction of Anti-inflammatory into Peripheral Nerves and Plexi, Percutaneous Approach (ICD-10-PCS; 2023-03-25)
PROC: 3E0T3BZ Introduction of Anesthetic Agent into Peripheral Nerves and Plexi, Percutaneous Approach (ICD-10-PCS; principal; 2023-03-25 10:15)
DX: M47.816 Spondylosis without myelopathy or radiculopathy, lumbar region (principal)
CPT/HCPCS: 76000-TC-FY

== ENCOUNTER 2023-04-15 04:22 | Day surgery (SDC) | payer OTHER ==
[2023-04-14 10:27] VITALS: BMI 31.1
[~2023-04-15 04:22] MED LIST changes: -ACETAMINOPHEN 325 MG TABLET (FP) PO PRN; +BUPIVACAINE HCL/PF 0.75% 10 ML VIAL NR ONE; +LIDOCAINE HCL 1% PRESERVATIVE FREE - 30ML VIAL IJ ONE
[2023-04-15] MEDS ORDERED: LIDOCAINE HCL/PF 1% SDV 5ML VIAL ONE (07:35)
[2023-04-15] MEDS ORDERED: BUPIVACAINE HCL/PF 0.75% 10 ML VIAL ONE (07:35)
[2023-04-15] MEDS ORDERED: ACETAMINOPHEN 500 MG TABLET (FP) PO PRN (09:19)
[2023-04-15 14:54] VITALS: RESP 20
[2023-04-15] MEDS ORDERED: BUPIVACAINE HCL/PF 0.75% 10 ML VIAL NR ONE (15:20)
[2023-04-15] MEDS ORDERED: LIDOCAINE HCL 1% PRESERVATIVE FREE - 30ML VIAL IJ ONE (15:20)
[2023-04-15 19:28] VITALS: BP 120/67; PULSE 82; TEMP 97.2
== END 2023-04-15 16:25 | disposition home or self-care (01) ==
LOC: JASU-SURG 04:22
PROVIDERS: ATTEND Pain Medicine Pain Medicine
PROC: 3E0T33Z Introduction of Anti-inflammatory into Peripheral Nerves and Plexi, Percutaneous Approach (ICD-10-PCS; 2023-04-15)
PROC: 3E0T3BZ Introduction of Anesthetic Agent into Peripheral Nerves and Plexi, Percutaneous Approach (ICD-10-PCS; principal; 2023-04-15 16:30)
DX: M47.816 Spondylosis without myelopathy or radiculopathy, lumbar region (principal)
CPT/HCPCS: 76000-TC-FY

== ENCOUNTER 2023-06-24 06:15 | Day surgery (SDC) | payer OTHER ==
[2023-06-24] MEDS ORDERED: LIDOCAINE HCL/PF 1% SDV 5ML VIAL ONE (08:12)
[2023-06-24] MEDS ORDERED: BUPIVACAINE HCL/PF 0.75% 10 ML VIAL ONE (08:14)
[2023-06-24] MEDS ORDERED: DEXAMETHASONE SOD PHOSPHATE 10 MG/1 ML VIAL ONE (08:14)
[2023-06-24] MEDS ORDERED: LIDOCAINE HCL/PF 2% SDV 5ML VIAL ONE (08:15)
[2023-06-24 08:28] VITALS: BMI 31.1
[2023-06-24] MEDS ORDERED: ACETAMINOPHEN 500 MG TABLET (FP) PO PRN (09:21)
[2023-06-24] MEDS ORDERED: LIDOCAINE HCL 1% PRESERVATIVE FREE - 30ML VIAL INF ONE ×2 (11:23→12:10)
[2023-06-24] MEDS ORDERED: LIDOCAINE HCL/PF 2% SDV 5ML VIAL INF ONE ×2 (11:24→12:10)
[2023-06-24] MEDS ORDERED: BUPIVACAINE HCL/PF 0.75% 10 ML VIAL NR ONE ×2 (11:25→12:10)
[2023-06-24] MEDS ORDERED: DEXAMETHASONE SOD PHOSPHATE 10 MG/1 ML VIAL IVPUSH ONE ×2 (11:25→12:10)
[2023-06-24 13:24] VITALS: BP 169/64; PULSE 81; RESP 18; TEMP 98
== END 2023-06-24 13:22 | disposition home or self-care (01) ==
LOC: JASU-SURG 06:15
PROVIDERS: ATTEND Pain Medicine Pain Medicine
PROC: 015B3ZZ Destruction of Lumbar Nerve, Percutaneous Approach (ICD-10-PCS; principal; 2023-06-24 11:45)
DX: M47.816 Spondylosis without myelopathy or radiculopathy, lumbar region (principal)
CPT/HCPCS: 76000-TC-FY; J1100

== ENCOUNTER 2023-07-29 04:11 | Day surgery (SDC) | payer OTHER ==
[2023-07-27 11:54] VITALS: BMI 31.1
[2023-07-29] MEDS ORDERED: BUPIVACAINE HCL/PF 0.75% 10 ML VIAL ONE (07:15)
[2023-07-29] MEDS ORDERED: LIDOCAINE HCL/PF 2% SDV 5ML VIAL ONE (07:15)
[2023-07-29] MEDS ORDERED: DEXAMETHASONE SOD PHOSPHATE 10 MG/1 ML VIAL ONE (07:15)
[2023-07-29 08:42] VITALS: RESP 18
[2023-07-29] MEDS ORDERED: ACETAMINOPHEN 500 MG TABLET (FP) PO PRN (09:29)
[2023-07-29] MEDS ORDERED: LIDOCAINE 1% P/F 10 MG/ML VIAL INF ONE (10:38)
[2023-07-29] MEDS ORDERED: LIDOCAINE HCL 2% (50ML VIAL) INF ONE (10:38)
[2023-07-29] MEDS ORDERED: BUPIVACAINE HCL/PF 0.75% 10 ML VIAL PNB ONE (10:38)
[2023-07-29] MEDS ORDERED: DEXAMETHASONE SOD PHOSPHATE 10 MG/1 ML VIAL IVPUSH ONE (10:38)
[2023-07-29 12:41] VITALS: BP 150/60; PULSE 66; TEMP 97.7
== END 2023-07-29 12:10 | disposition home or self-care (01) ==
LOC: JASU-SURG 04:11
PROVIDERS: ATTEND Pain Medicine Pain Medicine
PROC: 015B3ZZ Destruction of Lumbar Nerve, Percutaneous Approach (ICD-10-PCS; principal; 2023-07-29 10:15)
DX: M47.816 Spondylosis without myelopathy or radiculopathy, lumbar region (principal)
CPT/HCPCS: 76000-TC-FY; J1100

== ENCOUNTER 2023-08-26 04:42 | Day surgery (SDC) | payer OTHER ==
[2023-08-25 09:07] VITALS: BMI 31.2
[~2023-08-26 04:42] MED LIST changes: +BUPIVACAINE HCL/PF 0.5% (5MG/ML) 10 ML VIAL IJ ONE; -BUPIVACAINE HCL/PF 0.75% 10 ML VIAL NR ONE; -LIDOCAINE HCL 1% PRESERVATIVE FREE - 30ML VIAL IJ ONE; +LIDOCAINE HCL 1%, 10 MG/ML (20ML VIAL) NR ONE
[2023-08-26] MEDS ORDERED: BUPIVACAINE HCL/PF 0.5% (5MG/ML) 10 ML VIAL ONE (07:31)
[2023-08-26] MEDS ORDERED: LIDOCAINE HCL/PF 1% SDV 5ML VIAL ONE (07:31)
[2023-08-26 09:20] VITALS: RESP 18
[2023-08-26] MEDS ORDERED: BUPIVACAINE HCL/PF 0.5% (5MG/ML) 10 ML VIAL IJ ONE (10:40)
[2023-08-26 13:16] VITALS: BP 157/62; PULSE 72; TEMP 97.9
[2023-08-26] MEDS ORDERED: ACETAMINOPHEN 500 MG TABLET (FP) PO PRN (14:05)
== END 2023-08-26 12:15 | disposition home or self-care (01) ==
LOC: JASU-SURG 04:42
PROVIDERS: ATTEND Pain Medicine Pain Medicine
PROC: 3E0T3BZ Introduction of Anesthetic Agent into Peripheral Nerves and Plexi, Percutaneous Approach (ICD-10-PCS; principal; 2023-08-26 11:00)
DX: M47.812 Spondylosis without myelopathy or radiculopathy, cervical region (principal)
CPT/HCPCS: 76000-TC-FY

== ENCOUNTER 2023-11-18 04:06 | Day surgery (SDC) | payer OTHER ==
[2023-11-16 12:10] VITALS: BMI 31.1
[~2023-11-18 04:06] MED LIST changes: +ACETAMINOPHEN 500 MG TABLET (FP) PO PRN; -BUPIVACAINE HCL/PF 0.5% (5MG/ML) 10 ML VIAL IJ ONE; +LIDOCAINE 1% P/F 10 MG/ML VIAL INF ONE; -LIDOCAINE HCL 1%, 10 MG/ML (20ML VIAL) NR ONE
[2023-11-18] MEDS ORDERED: LIDOCAINE HCL/PF 1% SDV 5ML VIAL ONE (07:15)
[2023-11-18] MEDS ORDERED: LIDOCAINE 1% P/F 10 MG/ML VIAL INF ONE (10:00)
[2023-11-18 10:29] VITALS: RESP 20
[2023-11-18] MEDS ORDERED: ACETAMINOPHEN 500 MG TABLET (FP) PO PRN (10:58)
[2023-11-18 11:28] VITALS: BP 149/86; PULSE 77; TEMP 98
== END 2023-11-18 11:31 | disposition home or self-care (01) ==
LOC: JASU-SURG 04:06
PROVIDERS: ATTEND Pain Medicine Pain Medicine
PROC: 01HY3MZ Insertion of Neurostimulator Lead into Peripheral Nerve, Percutaneous Approach (ICD-10-PCS; principal; 2023-11-18 10:15)
DX: G89.4 Chronic pain syndrome (principal)
CPT/HCPCS: 64555; C1778; 76000-TC-FY

== ENCOUNTER 2024-07-24 10:36 | Inpatient (IN) | payer OTHER ==
[2024-07-24] MEDS ORDERED: ONDANSETRON 4 MG/2 ML VIAL ONE (11:32)
[2024-07-24] MEDS ORDERED: ACETAMINOPHEN INJECTION 100 ML ONE (11:32)
[2024-07-24] MEDS: ACETAMINOPHEN 1000 MG/100 ML BAG IVPB ONE (11:51)
[2024-07-24] MEDS: SODIUM CHLORIDE 1,000 ML IV STA (11:51)
[2024-07-24] MEDS: ONDANSETRON 4 MG/2 ML VIAL IVPUSH ONE (11:52)
[2024-07-24 12:05] LABS: BASO % 0.5 % (0-2.0); EOS % 0.9 % (0-4.5); HEMATOCRIT 37.3 % (32.4-45.2); LYMPH % 14.3 % (8-40); MCH 31.1 pg (25.7-33.7); MCHC 32.2 g/dl (32.0-36.0); MEAN CELL VOLUME 96.5 fl (80-96); MEAN PLT VOLUME 9.7 fl (7.5-11.1); MONO % 7.7 % (3.8-10.2); NEUT % 76.6 % (42.8-82.8); PLATELET COUNT 165 10^3/uL (134-434); RBC 3.86 M/mm3 (3.60-5.2); RDW 13.4 % (11.6-15.6); WHITE BLOOD COUNT 5.5 K/mm3 (4.0-10.0)
[2024-07-24 12:18] LABS: POTASSIUM 4.5 mmol/L (3.5-5.1)
[2024-07-24 12:20] LABS: ALBUMIN 3.8 g/dl (3.4-5.0); BLOOD UREA NITROGEN 31.9 mg/dL (7-18); CALCIUM 9.3 mg/dL (8.5-10.1)
[2024-07-24 12:24] LABS: CREATININE 1.4 mg/dL (0.55-1.3)
[2024-07-24 12:25] LABS: BILIRUBIN,TOTAL 0.5 mg/dL (0.2-1); TOT PROT 7.3 g/dl (6.4-8.2)
[2024-07-24] MEDS ORDERED: PIPERACILLIN/TAZOB 3.375 GM 3.375 GM/50 ML BAG IVPB ONE (16:33)
[2024-07-24] MEDS: PIPERACILLIN/TAZOB 3.375 GM 3.375 GM in DEXTROSE 5%-WATER - 50 ML IVPB ONE (16:36)
[2024-07-24] MEDS: SODIUM CHLORIDE 1,000 ML IV SCH (16:36)
[2024-07-25] MEDS ORDERED: ACETAMINOPHEN INJECTION 100 ML ONE ×2 (01:55→22:31)
[2024-07-25] MEDS: ACETAMINOPHEN 1000 MG/100 ML BAG IVPB PRN (02:02)
[2024-07-25] MEDS ORDERED: PIPERACILLIN/TAZOB 2.25 GM 2.25 GM/50 ML BAG IVPB ONE ×4 (02:03→20:45)
[2024-07-25] MEDS: PIPERACILLIN/TAZOB 2.25 GM 2.25 GM in DEXTROSE 5%-WATER - 50 ML IVPB SCH (03:05)
[2024-07-25] MEDS: LACTATED RINGERS SOLUTION 1,000 ML/1,000 ML INFUS.BAG IV SCH (09:05)
[2024-07-25] MEDS ORDERED: PATIENT'S OWN MEDICATION (NON-FORMULARY) (Etanercept [Enbrel] 50 MG/ML Syringe) SQ SCH (12:00)
[2024-07-25] MEDS ORDERED: ATORVASTATIN CA 20 MG TABLET (FP) ONE (22:31)
[2024-07-25] MEDS: ATORVASTATIN CA 20 MG TABLET (FP) PO SCH (22:37)
[2024-07-26] MEDS: LEVOTHYROXINE NA 75 MCG TABLET (FP) PO SCH (06:45)
[2024-07-26] MEDS: LEFLUNOMIDE 10 MG TABLET PO SCH (10:05)
[2024-07-26] MEDS: amLODIPine BESYLATE 10 MG TABLET (FP) PO SCH (10:05)
[2024-07-26] MEDS: LISINOPRIL 20 MG TABLET PO SCH (10:05)
[2024-07-26] MEDS: ENOXAPARIN NA (PORCINE) 40 MG/0.4 ML DISP.SYRIN SQ SCH (10:05)
[2024-07-26 10:35] LABS: INR 0.98 (0.83-1.09); PROTHROMBIN TIME (PATIENT) 11.3 SEC (9.7-13.0)
[2024-07-26 10:44] LABS: BASO % 0.7 % (0-2.0); EOS % 6.7 % (0-4.5); HEMATOCRIT 34.4 % (32.4-45.2); HEMOGLOBIN 11.1 GM/dL (10.7-15.3); LYMPH % 32.7 % (8-40); MCH 31.2 pg (25.7-33.7); MCHC 32.3 g/dl (32.0-36.0); MEAN CELL VOLUME 96.7 fl (80-96); MEAN PLT VOLUME 9.6 fl (7.5-11.1); MONO % 9.7 % (3.8-10.2); NEUT % 50.2 % (42.8-82.8); PLATELET COUNT 142 10^3/uL (134-434); RBC 3.56 M/mm3 (3.60-5.2); RDW 13.2 % (11.6-15.6); WHITE BLOOD COUNT 3.6 K/mm3 (4.0-10.0)
[2024-07-26 11:30] LABS: POTASSIUM 3.7 mmol/L (3.5-5.1)
[2024-07-26 11:38] LABS: CALCIUM 8.6 mg/dL (8.5-10.1)
[2024-07-26 11:39] LABS: ALBUMIN 3.2 g/dl (3.4-5.0); BLOOD UREA NITROGEN 16.8 mg/dL (7-18)
[2024-07-26 11:42] LABS: CREATININE 1.2 mg/dL (0.55-1.3)
[2024-07-26 11:43] LABS: BILIRUBIN,TOTAL 0.4 mg/dL (0.2-1); TOT PROT 6.3 g/dl (6.4-8.2)
[2024-07-26] MEDS: PIPERACILLIN/TAZOB 2.25 GM 2.25 GM in DEXTROSE 5%-WATER - 50 ML IVPB SCH (19:52)
[2024-07-26] MEDS: ACETAMINOPHEN 1000 MG/100 ML BAG IVPB ONE (21:33)
[2024-07-26 23:12] LABS: MAGNESIUM 1.8 mg/dL (1.8-2.4)
[2024-07-26 23:20] LABS: N-TERMINAL BNP 225.9 pg/ml (5-450)
[2024-07-27] MEDS: SIMETHICONE 80 MG TAB.CHEW (FP) PO SCH (14:59)
[2024-07-27] MEDS: BANATROL PLUS POWDER PACKET PO SCH (22:52)
[2024-07-27 23:59] VITALS: BMI 28.9
[2024-07-28] MEDS: LEVOTHYROXINE NA 100 MCG TABLET (FP) PO SCH (06:16)
[2024-07-28 09:24] LABS: BASO % 0.6 % (0-2.0); HEMATOCRIT 31.7 % (32.4-45.2); HEMOGLOBIN 10.4 GM/dL (10.7-15.3); LYMPH % 36.3 % (8-40); MCH 31.8 pg (25.7-33.7); MCHC 32.8 g/dl (32.0-36.0); MEAN CELL VOLUME 96.8 fl (80-96); MEAN PLT VOLUME 9.8 fl (7.5-11.1); NEUT % 44.1 % (42.8-82.8); PLATELET COUNT 137 10^3/uL (134-434); RBC 3.28 M/mm3 (3.60-5.2); WHITE BLOOD COUNT 3.3 K/mm3 (4.0-10.0)
[2024-07-28 09:39] LABS: POTASSIUM 4.1 mmol/L (3.5-5.1)
[2024-07-28 09:44] LABS: BLOOD UREA NITROGEN 17.4 mg/dL (7-18)
[2024-07-28 09:47] LABS: CREATININE 1.1 mg/dL (0.55-1.3)
[2024-07-28 09:49] LABS: BILIRUBIN,TOTAL 0.4 mg/dL (0.2-1); TOT PROT 5.9 g/dl (6.4-8.2)
[2024-07-29 18:48] VITALS: RESP 18
[2024-07-29 23:14] VITALS: PULSE 66
[2024-07-30 14:38] VITALS: BP 142/53; TEMP 99.1
== END 2024-07-30 16:47 | disposition home or self-care (01) | DRG 390 ==
LOC: JER 10:36 → JERBED 14:14 → J6S 07-25 23:22 → J6W 07-28 16:18
PROVIDERS: ADMIT Internal Medicine; ATTEND Internal Medicine
DX: K56.609 Unspecified intestinal obstruction, unspecified as to partial versus complete obstruction (principal); K83.8 Other specified diseases of biliary tract; I10 Essential (primary) hypertension; E78.5 Hyperlipidemia, unspecified; E03.9 Hypothyroidism, unspecified; M06.9 Rheumatoid arthritis, unspecified; K57.90 Diverticulosis of intestine, part unspecified, without perforation or abscess without bleeding; K44.9 Diaphragmatic hernia without obstruction or gangrene; I73.9 Peripheral vascular disease, unspecified; I12.9 Hypertensive chronic kidney disease with stage 1 through stage 4 chronic kidney disease, or unspecified chronic kidney disease; N18.9 Chronic kidney disease, unspecified; B35.1 Tinea unguium; B35.3 Tinea pedis; M79.674 Pain in right toe(s); M79.675 Pain in left toe(s); Z96.652 Presence of left artificial knee joint
CPT/HCPCS: 36415; 74019-TC-FY; 74176-TC; 74177-TC; 74181-TC; 76705-TC; 80053; 82962; 82977; 83036; 83735; 83880; 84443; 84484; 85025; 85610; 93005; 93010; 99285-25; J0131

== ENCOUNTER 2025-02-04 09:45 | Inpatient (IN) | payer OTHER ==
[2025-02-04 11:31] LABS: ABSOLUTE IMMATURE GRANULOCYTES 0.01 x10^3/uL (0.0-0.031); BASOPHILS # 0.03 x10^3/uL (0.01-0.08); EOSINOPHILS # 0.18 x10^3/uL (0.04-0.36); HEMATOCRIT 31.7 % (34.1-44.9); HEMOGLOBIN 9.7 g/dL (11.2-15.7); MCHC 30.6 g/dl (32.2-35.5); MEAN CELL VOLUME 98.8 fl (79.4-94.8); MEAN PLT VOLUME 10.8 fl (9.4-12.3); MONOCYTE # 0.38 x10^3/uL (0.24-0.86); MONOCYTE % 8.4 % (4.7-12.5); PLATELET COUNT 201 x10^3/uL (182-369); RDW 13.4 % (12.4-16.6)
[2025-02-04 11:46] LABS: ACTIVATED PTT 32.8 SECONDS (25.2-36.5)
[2025-02-04 11:59] LABS: POTASSIUM 4.6 mmol/L (3.5-5.1)
[2025-02-04 12:02] LABS: ALBUMIN 3.3 g/dl (3.4-5.0); BLOOD UREA NITROGEN 35.4 mg/dL (7-18); CALCIUM 9.2 mg/dL (8.5-10.1)
[2025-02-04] MEDS ORDERED: ACETAMINOPHEN INJECTION 100 ML ONE (12:02)
[2025-02-04 12:05] LABS: CREATININE 1.4 mg/dL (0.55-1.3)
[2025-02-04 12:06] LABS: BILIRUBIN,TOTAL 0.4 mg/dL (0.2-1)
[2025-02-04 12:07] LABS: TOT PROT 6.4 g/dl (6.4-8.2)
[2025-02-04] MEDS: ACETAMINOPHEN 1000 MG/100 ML BAG IVPB ONE (12:23)
[2025-02-04 12:50] LABS: URINE APPEARANCE CLEAR; URINE BILIRUBIN NEGATIVE (NEGATIVE); URINE COLOR YELLOW; URINE GLUCOSE (UA) NEGATIVE (NEGATIVE); URINE KETONE NEGATIVE (NEGATIVE); URINE LEUK ESTERASE NEGATIVE (NEGATIVE); URINE NITRITE NEGATIVE (NEGATIVE); URINE PROTEIN NEGATIVE (NEGATIVE); URINE UROBILINOGEN 0.2 mg/dL (0.2-1.0)
[2025-02-04] MEDS: SODIUM CHLORIDE 0.9% 500 ML INFUS.BAG IV ONE (13:15)
[2025-02-04 13:32] LABS: HCV DIAGNOSTIC IN-HOUSE W/RFLX NON-REACTIVE (NONREACTIVE); HIV INTERPRETATION NEGATIVE (NEGATIVE)
[2025-02-04] MEDS ORDERED: FLUORESCEIN NA 1 EA STRIP ONE (14:09)
[2025-02-04] MEDS ORDERED: TETRACAINE 0.5% OPHTH SOLN 2 ML BOTTLE ONE (14:09)
[2025-02-04] MEDS ORDERED: MORPHINE SULFATE 2 MG/ML SYRINGE ONE (15:39)
[2025-02-04] MEDS: morphine SULFATE 4 MG/ML VIAL IVPUSH ONE (15:54)
[2025-02-04] MEDS: morphine CARPU-JECT 4 MG/1 ML DISP.SYRIN IVPUSH ONE (15:54)
[2025-02-04 18:25] VITALS: BMI 27.1
[2025-02-04] MEDS ORDERED: ONDANSETRON 4 MG/2 ML VIAL IVPUSH PRN (21:13)
[2025-02-04] MEDS: ATORVASTATIN CA 20 MG TABLET (FP) PO SCH (21:48)
[2025-02-04] MEDS: DEXTROSE 5%-0.45% SALINE 1,000 ML IV SCH (21:48)
[2025-02-05] MEDS: SIMETHICONE 80 MG TAB.CHEW (FP) PO PRN (00:21)
[2025-02-05] MEDS: ACETAMINOPHEN 1000 MG/100 ML BAG IVPB PRN (05:04)
[2025-02-05] MEDS: LEVOTHYROXINE NA 88 MCG TABLET (FP) PO SCH (06:21)
[2025-02-05 08:33] LABS: ABSOLUTE IMMATURE GRANULOCYTES 0.01 x10^3/uL (0.0-0.031); BASOPHILS # 0.03 x10^3/uL (0.01-0.08); EOSINOPHIL % 6.4 % (0.7-5.8); HEMATOCRIT 31.6 % (34.1-44.9); HEMOGLOBIN 9.5 g/dL (11.2-15.7); MCHC 30.1 g/dl (32.2-35.5); MEAN CELL VOLUME 98.1 fl (79.4-94.8); MEAN PLT VOLUME 10.7 fl (9.4-12.3); MONOCYTE # 0.32 x10^3/uL (0.24-0.86); MONOCYTE % 10.3 % (4.7-12.5); PLATELET COUNT 194 x10^3/uL (182-369); RDW 13.4 % (12.4-16.6)
[2025-02-05 09:01] LABS: POTASSIUM 4.1 mmol/L (3.5-5.1)
[2025-02-05 09:16] LABS: ALBUMIN 2.9 g/dl (3.4-5.0); BLOOD UREA NITROGEN 21.2 mg/dL (7-18); CALCIUM 8.4 mg/dL (8.5-10.1)
[2025-02-05 09:21] LABS: BILIRUBIN,TOTAL 0.4 mg/dL (0.2-1)
[2025-02-05 09:22] LABS: TOT PROT 5.6 g/dl (6.4-8.2)
[2025-02-05] MEDS: OXYBUTYNIN CHLORIDE 5 MG TABLET PO SCH (09:42)
[2025-02-05] MEDS: FOLIC ACID 1 MG TABLET (FP) PO SCH (09:42)
[2025-02-05] MEDS: PANTOPRAZOLE 40 MG TABLET PO SCH (09:42)
[2025-02-05] MEDS: amLODIPine BESYLATE 10 MG TABLET (FP) PO SCH (09:43)
[2025-02-05] MEDS ORDERED: MIDAZOLAM HCL 2 MG/2 ML SINGLE DOSE VIAL ONE (12:06)
[2025-02-05] MEDS: INDOMETHACIN 50 MG RECTAL SUPPOSITORY PR ONE (13:33)
[2025-02-06 09:02] LABS: ABSOLUTE IMMATURE GRANULOCYTES 0.01 x10^3/uL (0.0-0.031); BASOPHILS # 0.02 x10^3/uL (0.01-0.08); EOSINOPHIL % 6.2 % (0.7-5.8); EOSINOPHILS # 0.23 x10^3/uL (0.04-0.36); HEMATOCRIT 31.5 % (34.1-44.9); HEMOGLOBIN 9.7 g/dL (11.2-15.7); MCHC 30.8 g/dl (32.2-35.5); MEAN CELL VOLUME 99.1 fl (79.4-94.8); MEAN PLT VOLUME 11.2 fl (9.4-12.3); MONOCYTE # 0.41 x10^3/uL (0.24-0.86); MONOCYTE % 11.1 % (4.7-12.5); PLATELET COUNT 185 x10^3/uL (182-369); RDW 13.2 % (12.4-16.6)
[2025-02-06 09:24] LABS: POTASSIUM 4.3 mmol/L (3.5-5.1)
[2025-02-06 09:30] LABS: CALCIUM 8.4 mg/dL (8.5-10.1)
[2025-02-06 09:31] LABS: ALBUMIN 2.8 g/dl (3.4-5.0); BLOOD UREA NITROGEN 18.4 mg/dL (7-18)
[2025-02-06 09:34] LABS: BILIRUBIN,TOTAL 0.4 mg/dL (0.2-1); CREATININE 1.1 mg/dL (0.55-1.3)
[2025-02-06 09:35] LABS: TOT PROT 5.5 g/dl (6.4-8.2)
[2025-02-06] MEDS: POLYETHYLENE GLYCOL (HEALTHYLAX) 3350 17 GM PACKET PO SCH (10:08)
[2025-02-06] MEDS: ENOXAPARIN NA (PORCINE) 40 MG/0.4 ML DISP.SYRIN SQ SCH (10:09)
[2025-02-06 10:16] VITALS: RESP 20
[2025-02-06 15:11] VITALS: BP 145/54; PULSE 65; TEMP 98
== END 2025-02-06 17:08 | disposition home or self-care (01) | DRG 384 ==
LOC: JER 09:45 → JERBED 16:18 → J8W 17:46
PROVIDERS: ADMIT Internal Medicine; ATTEND Internal Medicine
PROC: BF43ZZZ Ultrasonography of Gallbladder and Bile Ducts (ICD-10-PCS; 2025-02-05)
PROC: 0DJ08ZZ Inspection of Upper Intestinal Tract, Via Natural or Artificial Opening Endoscopic (ICD-10-PCS; principal; 2025-02-05 12:15)
DX: K25.9 Gastric ulcer, unspecified as acute or chronic, without hemorrhage or perforation (principal); R10.9 Unspecified abdominal pain; K86.89 Other specified diseases of pancreas; I10 Essential (primary) hypertension
CPT/HCPCS: 36415; 74177-TC; 74181-TC; 76700-TC; 80053; 81003; 83605; 83690; 84443; 85025; 85610; 85730; 86803; 86850; 86900; 86901; 87086; 87389; 99285-25; J0131; Q9967

== ENCOUNTER 2025-02-19 17:44 | Emergency (ER) | payer OTHER ==
[2025-02-19 17:54] VITALS: BMI 26.6
[2025-02-19] MEDS ORDERED: ACETAMINOPHEN INJECTION 100 ML ONE (18:46)
[2025-02-19] MEDS: ACETAMINOPHEN 1000 MG/100 ML BAG IVPB ONE (19:07)
[2025-02-19 19:20] LABS: ABSOLUTE IMMATURE GRANULOCYTES 0.02 x10^3/uL (0.0-0.031); BASOPHILS # 0.03 x10^3/uL (0.01-0.08); EOSINOPHIL % 0.4 % (0.7-5.8); EOSINOPHILS # 0.04 x10^3/uL (0.04-0.36); HEMATOCRIT 34.2 % (34.1-44.9); HEMOGLOBIN 10.5 g/dL (11.2-15.7); MCHC 30.7 g/dl (32.2-35.5); MEAN CELL VOLUME 99.1 fl (79.4-94.8); MEAN PLT VOLUME 11.2 fl (9.4-12.3); MONOCYTE # 0.79 x10^3/uL (0.24-0.86); MONOCYTE % 8.2 % (4.7-12.5); PLATELET COUNT 158 x10^3/uL (182-369); RDW 13.5 % (12.4-16.6)
[2025-02-19 19:37] LABS: POTASSIUM 4.2 mmol/L (3.5-5.1)
[2025-02-19 19:39] LABS: CALCIUM 9.3 mg/dL (8.5-10.1)
[2025-02-19 19:40] LABS: MAGNESIUM 1.4 mg/dL (1.8-2.4)
[2025-02-19 19:44] LABS: ALBUMIN 3.6 g/dl (3.4-5.0); BILIRUBIN,TOTAL 0.6 mg/dL (0.2-1); TOT PROT 6.9 g/dl (6.4-8.2)
[2025-02-19] MEDS ORDERED: FAMOTIDINE 20 MG/50 ML IVPB 20 MG/50 ML MG IVPB ONE (19:45)
[2025-02-19] MEDS: FAMOTIDINE 20 MG/50 ML IVPB 20 MG/50 ML MG IVPB ONE (19:50)
[2025-02-19] MEDS ORDERED: MAGNESIUM SULFATE IN WATER 2 GM/50 ML IVPB IVPB ONE (20:02)
[2025-02-19 20:05] LABS: URINE APPEARANCE CLEAR; URINE BILIRUBIN NEGATIVE (NEGATIVE); URINE COLOR YELLOW; URINE GLUCOSE (UA) NEGATIVE (NEGATIVE); URINE KETONE NEGATIVE (NEGATIVE); URINE LEUK ESTERASE NEGATIVE (NEGATIVE); URINE NITRITE NEGATIVE (NEGATIVE); URINE PROTEIN TRACE (NEGATIVE); URINE UROBILINOGEN 0.2 mg/dL (0.2-1.0)
[2025-02-19] MEDS: MAGNESIUM SULF 50% (8.12 MEQ/2 ML-1 GM VIAL) IVPB ONE (20:13)
[2025-02-19 21:43] VITALS: BP 165/67; PULSE 81; RESP 17; TEMP 97.6
== END 2025-02-19 21:44 | disposition home or self-care (01) ==
LOC: JER 17:44
PROC: 3E033GC Introduction of Other Therapeutic Substance into Peripheral Vein, Percutaneous Approach (ICD-10-PCS; principal; 2025-02-19)
PROC: 3E033GC Introduction of Other Therapeutic Substance into Peripheral Vein, Percutaneous Approach (ICD-10-PCS; 2025-02-19)
PROC: 3E033NZ Introduction of Analgesics, Hypnotics, Sedatives into Peripheral Vein, Percutaneous Approach (ICD-10-PCS; 2025-02-19)
DX: R10.31 Right lower quadrant pain (principal); R10.11 Right upper quadrant pain; R11.2 Nausea with vomiting, unspecified; R68.83 Chills (without fever); R14.3 Flatulence
CPT/HCPCS: 36415; 80053; 81003; 83605; 83690; 83735; 85025; 86850; 86900; 86901; 87086; 99284-25; J0131